=== PATIENT | female | born 1960 | race African-American/Black ===

== ENCOUNTER → 2016-08-27 | Outpatient (CLI) | payer OTHER ==
--- NOTE | 2016-08-27 10:34 | KCIC ---
PROCEDURE Two-view chest HISTORY Clubbing of fingernails and toenails a few months ago. COMPARISON None FINDINGS The cardiac silhouette is not grossly enlarged. No vascular congestion. No pneumothorax. No focal airspace consolidation. No pleural effusion. No pneumothorax. Mild left convexity thoracic spinal curvature with mild hyper expansion of the left darrin thorax. IMPRESSION No evidence of active disease in the chest. Electronically signed by: Hasmukh Ortega MD (Aug 27, 2016 10:32:41)
== END | disposition home or self-care (01) ==
LOC: KCIC 09:49
PROVIDERS: ATTEND Family Medicine
DX: R68.3 Clubbing of fingers (principal)
CPT/HCPCS: 71020

== ENCOUNTER → 2017-01-26 | Outpatient (CLI) | payer OTHER ==
--- NOTE | 2017-01-26 16:21 | RAD ---
DATE: 01/26/17 EXAM: DIGITAL SCREEN BILAT W/CAD HISTORY: Routine screening COMPARISON: None available. This is a baseline exam This study was interpreted with the benefit of Computerized Aided Detection (CAD). TECHNIQUE: Routine digital CC and MLO views of both breasts are obtained. FINDINGS: Breast Density: SCATTERED The breast parenchyma shows scattered fibroglandular densities. Breast parenchyma level B. . There is a area of nodular asymmetric density in the outer retroareolar region. This is probably seen at the area of asymmetric density on the MLO projection. There is also an area of asymmetric density in the outer right breast zone C. No suspicious clustered microcalcifications are seen. Benign-appearing calcifications are present in the left upper outer breast. IMPRESSION: Area of asymmetric nodular density in the left outer breast, zone A. This may be evaluated with 90 degree mediolateral and CC spot compression view and ultrasound. Area of apparent asymmetric density in the deep outer left breast may also be evaluated by exaggerated CC view and ultrasound. BI-RADS CATEGORY: 0 INCOMPLETE: NEED ADDITIONAL IMAGING EVALUATION AND/OR PRIOR MAMMOGRAMS FOR COMPARISON. RECOMMENDED FOLLOW-UP: ADD ADDITIONAL IMAGING PQRS compliance statement: Patient information was entered into a reminder system with a target due date for the next mammogram. Mammography is a sensitive method for finding small breast cancers, but it does not detect them all and is not a substitute for careful clinical examination. A negative mammogram does not negate a clinically suspicious finding and should not result in delay in biopsying a clinically suspicious abnormality. "Our facility is accredited by the [employer] Mammography Program."
== END | disposition home or self-care (01) ==
LOC: MAMMO 14:42
PROVIDERS: ATTEND Family Medicine
DX: Z12.31 Encounter for screening mammogram for malignant neoplasm of breast (principal)
CPT/HCPCS: G0202; 77067

== ENCOUNTER → 2017-02-04 | Outpatient (CLI) | payer OTHER ==
--- NOTE | 2017-02-04 14:20 | RAD ---
DATE: 02/04/2017 EXAM: DIGITAL DIAGNOSTIC LT, BREAST LEFT HISTORY: Suspicious screening study COMPARISON: 01/26/2017 This study was interpreted with the benefit of Computerized Aided Detection (CAD). The breast parenchyma shows scattered fibroglandular densities. Breast parenchyma level B. FINDINGS: Rolled and spot compression views confirm the presence of a small retroareolar density on the left, projected just lateral and superior to the midline. A slightly less prominent density is present at the same level on the right. The pattern suggests that this may represent a confluence of ducts. There is a hazy opacity located posteriorly in the upper outer quadrant of the left breast in the craniocaudad projection. This is inconsistently demonstrated on the rolled views. No discrete mass is seen on the oblique or straight mediolateral views. This probably represents superimposed fibroglandular shadows. Left breast ultrasound, 02/04/2017: A targeted ultrasound exam of the retroareolar region of the left breast was performed. Mildly prominent ducts are seen in this region, more so laterally. This appears to correspond to the area of increased density seen on the mammograms. No discrete mass is identified. We also scanned the entire upper outer quadrant of the left breast. Heterogeneous fibroglandular shadows are present. No cystic or solid breast mass is seen. IMPRESSION: Probably benign findings as described above. In the absence of old mammograms to establish stability, mammographic surveillance beginning with left mammography in 6 months and bilateral mammograms at one year is suggested. BI-RADS CATEGORY: 3 PROBABLY BENIGN FINDING(S)-SHORT INTERVAL FOLLOW-UP SUGGESTED RECOMMENDED FOLLOW-UP: 6M 6 MONTH FOLLOW-UP Note: The findings were discussed with the patient at the time of the exam. PQRS compliance statement: Patient information was entered into a reminder system with a target due date for the next mammogram. Mammography is a sensitive method for finding small breast cancers, but it does not detect them all and is not a substitute for careful clinical examination. A negative mammogram does not negate a clinically suspicious finding and should not result in delay in biopsying a clinically suspicious abnormality. "Our facility is accredited by the [employer] Mammography Program."
== END | disposition home or self-care (01) ==
LOC: MAMMO 13:06
PROVIDERS: ATTEND Family Medicine
DX: R92.8 Other abnormal and inconclusive findings on diagnostic imaging of breast (principal)
CPT/HCPCS: 76641; G0206; 77065

== ENCOUNTER → 2017-08-12 | Outpatient (CLI) | payer OTHER | END | disposition home or self-care (01) | LOC: MAMMO 09:53 | DX: Z09 Encounter for follow-up examination after completed treatment for conditions other than malignant neoplasm (principal); R92.8 Other abnormal and inconclusive findings on diagnostic imaging of breast | CPT/HCPCS: 77065 ==

== ENCOUNTER → 2019-02-12 | Outpatient (CLI) | payer OTHER ==
--- NOTE | 2019-02-12 12:25 | RAD ---
MRI of the lumbar spine without contrast 02/12/2019 CLINICAL HISTORY: Low back pain which radiates down the right leg for one month. TECHNIQUE: Unenhanced T1-weighted and T2-weighted sagittal and axial images of the lumbar spine were obtained. FINDINGS: The patient appears to have transitional vertebral anatomy. For the purposes of this dictation the transitional vertebrae will be referred to by the letter T. It is partially sacralized. A hypoplastic disc is seen at T-S1. Very mild S-shaped curvature of the thoracolumbar spine is seen. Degenerative signal changes are seen involving all of the disks of the lumbar spine. Degenerative signal changes are seen within the marrow surrounding these discs. Loss of height of the L3-4, L4-5 and L5-T disks is noted. The conus medullaris is within normal limits in morphology, position, and signal characteristics. The L1-2 disc space is within normal limits. At the L2-3 disc space there is a mild generalized disc bulge. Degenerative changes are seen involving the facet joints bilaterally. There is moderate ligamentum flavum hypertrophy bilaterally. There is prominence of the posterior epidural fat. These findings when combined do not result in significant central spinal canal or neural foraminal stenosis. At the L3-4 disc space there is a mild to moderate generalized disc bulge. Degenerative changes are seen involving the facet joints bilaterally. There is moderate ligamentum flavum hypertrophy bilaterally. These findings when combined result in mild central spinal canal stenosis. No neural foraminal stenosis is seen. At the L4-5 disc space there is a mild to moderate generalized disc bulge. This is eccentric to the left. Degenerative changes are seen involving the facet joints bilaterally. There is moderate ligamentum flavum hypertrophy bilaterally. There is prominence of posterior epidural fat. Superimposed on the disc bulge is a left paracentral focal disc herniation which extrudes superiorly. This measures 4 mm in AP diameter. These findings when combined result in mild left greater than right central spinal canal stenosis. Mild to moderate left greater than right neural foraminal stenosis is seen. At the L5-T disc space there is a moderate generalized disc bulge. Degenerative changes are seen involving the facet joints bilaterally. There is moderate ligamentum flavum hypertrophy bilaterally. These findings when combined result in mild central spinal canal stenosis. Mild to moderate bilateral neural foraminal stenosis is seen. The T-S1 disc space is within normal limits. IMPRESSION: The changes of degenerative disc disease are seen throughout the lumbar spine. These findings result in mild central spinal canal stenosis at L3-4 and L5-T, and mild left greater than right central spinal canal stenosis at L4-5. Mild to moderate left greater than right neural foraminal stenosis is seen at L4-5. Mild to moderate bilateral neural foraminal stenosis is seen at L5-T. Electronically signed by: Issa Bhatia MD (02/12/2019 12:22 PM) [email or web address]
== END | disposition home or self-care (01) ==
LOC: MRI 15:02
PROVIDERS: ATTEND Family Medicine
DX: M48.05 Spinal stenosis, thoracolumbar region (principal); M51.16 Intervertebral disc disorders with radiculopathy, lumbar region; M47.26 Other spondylosis with radiculopathy, lumbar region; M47.814 Spondylosis without myelopathy or radiculopathy, thoracic region; M89.38 Hypertrophy of bone, other site; R26.9 Unspecified abnormalities of gait and mobility
CPT/HCPCS: 72148

== ENCOUNTER → 2019-03-28 | Outpatient (CLI) | payer OTHER ==
--- NOTE | 2019-03-28 16:09 | RAD ---
MRI Thoracic Spine without contrast History: Thoracic radiculopathy Technique: Multiplanar, multi sequential noncontrast MR imaging was performed of the thoracic spine. Comparison: None Findings: There is some motion degradation. Thoracic vertebral body stature and AP alignment are adequate. Thoracic cord caliber is within normal limits without defined or expansile signal abnormality, limited evaluation for more subtle signal change due to motion degradation. There is no significant focal marrow edema of the thoracic spine. There is multilevel spondylosis of mid to inferior thoracic levels. There is mild disc desiccation of mid to inferior thoracic levels, intervertebral disc spaces relatively preserved. Facet degenerative change contributes to [id number] posterior narrowing of the right T11-T12 neural foramen, minimal narrowing such as on the left at T11-12 and on the right at T8-T9 and T8-9 and T10. There is no focal posterior disc abnormality of the thoracic spine. There is no significant thoracic spinal stenosis at any level. Impression: 1. There is no significant thoracic spinal stenosis. Facet degenerative change contributes to degree of neural foramina compromise greatest on the right at T11-12. Electronically signed by: Piero Soriano MD (03/28/2019 4:06 PM) [id number]
--- NOTE | 2019-03-28 17:15 | RAD ---
MRI Cervical Spine Without Contrast History: Cervical stenosis Technique: Multiplanar, multi sequential noncontrast MR imaging was performed of the cervical spine. Comparison: None Findings: Not fully evaluated, there is ventriculomegaly. There is some motion degradation. There is appearance of some increased T2 signal of the cord such as on sagittal T2 sequence at C2, C3, C4-5. Cervical vertebral body stature is maintained. There is straightening of cervical spine. There is mild reversal of the lordotic curvature centered near C5-6. There is grade 1 anterior spondylolisthesis C3-4, C4-5, C5-6, C6-7. There is mild degenerative disc disease C6-7, mild disc desiccation C5-6. There is mild amorphous endplate edema greatest at C6-7 and to lesser degree at C5-6, also the anterior inferior aspect of C3-4 likely be due to be reactive/degenerative in etiology. C2-C3: Neural foramina and spinal canal are adequate. C3-C4: Spinal canal and neural foramina are adequate. C4-C5: Spinal canal and neural foramina are adequate C5-C6: Spinal canal and neural foramina are adequate. There is facet degenerative change. C6-C7: Neural foramina and spinal canal are adequate. C7-T1: Neural foramina and spinal canal are adequate. Impression: 1. There is no significant cervical spinal stenosis. There is multilevel mild abnormal alignment. Poorly evaluated due to motion artifact, there is appearance of mild increased patchy T2 signal of the cord, could be due to inflammatory demyelinating disease in the appropriate clinical setting although again limited characterization due to motion. 2. Not fully evaluated, there is ventriculomegaly. 3. There is mild degenerative disc disease, mild endplate edema likely reactive/degenerative in etiology. Electronically signed by: Piero Soriano MD (03/28/2019 5:12 PM) [email or web address]
== END | disposition home or self-care (01) ==
LOC: MRI 08:56 → EEVIPCON 08:56
PROVIDERS: ATTEND Neurological Surgery
DX: M50.322 Other cervical disc degeneration at C5-C6 level (principal); M47.24 Other spondylosis with radiculopathy, thoracic region; M47.812 Spondylosis without myelopathy or radiculopathy, cervical region; M48.04 Spinal stenosis, thoracic region; M43.12 Spondylolisthesis, cervical region
CPT/HCPCS: 72141; 72146

== ENCOUNTER → 2019-04-04 | Outpatient (CLI) | payer OTHER ==
[~2019-04-04] MED LIST: GADOTERATE 7.5 MMOL/15ML VIAL. IVP ONE
--- NOTE | 2019-04-04 12:38 | RAD ---
MRI of the Brain without and with Contrast 04/04/2019 Clinical History: Ventriculomegaly seen on recent MRI of the cervical spine. Dizziness. Technique: Unenhanced T1-weighted sagittal and axial and FLAIR, T2-weighted, gradient echo and diffusion-weighted axial images of the brain were obtained. After the intravenous administration of 16 cc of DOTAREM, enhanced T1-weighted axial, sagittal and coronal images of the brain were obtained. Findings: Comparison is made to the patient's MRI of the cervical spine dated 03/01/2019. 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 Prominent CSF is seen anterior to both temporal lobes and the inferior aspect of the posterior fossa. There is no definite MRI evidence of transependymal CSF flow. There is generalized parenchymal atrophy. Patchy and several small scattered areas of increased signal intensity are seen within the periventricular and subcortical white matter of both cerebral hemispheres on the FLAIR and T2-weighted images consistent with areas of relatively mild small vessel ischemic disease. No acute parenchymal abnormality is seen. No area of abnormal contrast enhancement is seen. There is no MRI evidence of acute ischemia/infarction. Mild mucosal thickening is seen scattered throughout the paranasal sinuses. Normal flow voids are seen within the major vascular structures surrounding the brain parenchyma. Impression: 1. 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 2. No acute parenchymal abnormality is seen. Electronically signed by: Issa Bhatia MD (04/04/2019 12:35 PM) [email or web address]
== END | disposition home or self-care (01) ==
LOC: MRI 08:41
PROVIDERS: ATTEND Neurological Surgery
DX: G93.89 Other specified disorders of brain (principal); G31.9 Degenerative disease of nervous system, unspecified; G91.0 Communicating hydrocephalus; R90.82 White matter disease, unspecified
CPT/HCPCS: 70553; A9575

== ENCOUNTER → 2020-04-30 | Outpatient (CLI) | payer MEDICAID ==
--- NOTE | 2020-04-30 13:51 | RAD ---
DATE: 04/30/2020 12:58 PM EXAM: DIGITAL DIAGNOSTIC BILATERAL HISTORY: Patient is due for screening and presents for short-term follow-up probably benign left breast finding on prior left diagnostic mammogram. COMPARISON: Bilateral mammograms of 01/26/2017, left digital diagnostic mammogram of 08/12/2017. Limited left breast ultrasound of 02/04/2017. TECHNIQUE: Bilateral full field craniocaudal and mediolateral oblique images were obtained using digital technique. This study was interpreted with the benefit of Computerized Aided Detection (CAD). FINDINGS: Breast Density: SCATTERED The breast parenchyma shows scattered fibroglandular densities. Breast parenchyma level B Previously questioned hazy opacity in the posterior upper-outer quadrant left breast is less conspicuous in the interval and likely reflects an involuting island of fibroglandular tissue. Partially imaged shunt catheter tubing in the medial right breast is incidentally noted. No suspicious masses, microcalcifications or architectural distortion is present to suggest malignancy in either breast. The visualized axillae are unremarkable. IMPRESSION: No mammographic evidence of malignancy. BI-RADS CATEGORY: 1 NEGATIVE RECOMMENDED FOLLOW-UP: 12M 12 MONTH FOLLOW-UP Annual screening mammography is recommended, unless clinically indicated sooner based on symptoms or change in physical exam. PQRS compliance statement: Patient information was entered into a reminder system with a target due date for the next mammogram. Mammography is a sensitive method for finding small breast cancers, but it does not detect them all and is not a substitute for careful clinical examination. A negative mammogram does not negate a clinically suspicious finding and should not result in delay in biopsying a clinically suspicious abnormality. "Our facility is accredited by the [employer] Mammography Program."
== END ==
LOC: MAMMO 12:47
PROVIDERS: ATTEND Family Medicine
DX: R92.2 Inconclusive mammogram (principal)
CPT/HCPCS: 77066

== ENCOUNTER → 2020-11-04 | Outpatient (CLI) | payer MEDICAID ==
--- NOTE | 2020-11-04 12:14 | KCIC ---
EXAM: Lumbar spine, 5 views. HISTORY: Pain. COMPARISON: None. FINDINGS: 5 views lumbar spine are obtained. There is mild thoracolumbar scoliosis. There is a transi tional lumbosacral segment, considered a partial lumbarized S1 segment for this dictation. Based on t his numbering system, there is a chronic mild right wedge compression deformity of L1. There is also a chronic mild decreased vertebral body height at the lower thoracic levels. There is multilevel endp late remodeling with osteophytosis. There is disc space narrowing and vacuum phenomenon at L5-S1. The re is facet arthropathy predominantly at the lower lumbar levels. There is a ventriculoperitoneal anselmo nt terminating over the pelvis. IMPRESSION: 1. Multilevel degenerative change throughout the lower thoracic and lumbar spine, described above. 2. Chronic mild compression deformity of L1 and chronic mild decreased vertebral body height at multi ple thoracic levels. Electronically signed by: Cinthya Reis MD (11/04/2020 12:12 PM) [id number]
== END ==
LOC: KCIC 11:00
PROVIDERS: ATTEND Family Medicine
DX: M47.895 Other spondylosis, thoracolumbar region (principal); M43.8X5 Other specified deforming dorsopathies, thoracolumbar region
CPT/HCPCS: 72110

== ENCOUNTER → 2021-05-04 | Outpatient (CLI) | payer MEDICAID ==
--- NOTE | 2021-05-04 11:13 | RAD ---
Bilateral digital screening mammogram: Reason for examination: Routine screening. Comparison: Mammograms from 04/30/2020, 01/26/2017, 02/04/2017 Interpretation was made with the benefit of CAD. FINDINGS: Breast density: Category B. There are scattered areas of fibroglandular density. No suspicious breast mass, malignant appearing calcifications, or architectural distortion is seen. T here is a very faint 3 mm group of calcifications in the left inner breast, 9:00 position at 8 cm fro m the nipple. These appear to be present on the 2017 exams and have not changed significantly. IMPRESSION: No evidence of malignancy. Assessment: BI-RADS 2. Benign finding. Recommendation: Routine screening mammograms. The patient will receive a letter with the results in the mail. Patient information will be entered i nto the mammography reminder system with a target recall date for the next mammogram. A reminder leeroy er will be generated. Electronically signed by: Radha Campos MD (05/04/2021 11:10 AM) [id number]
== END ==
LOC: MAMMO 09:48
PROVIDERS: ATTEND Family Medicine
DX: Z12.31 Encounter for screening mammogram for malignant neoplasm of breast (principal)
CPT/HCPCS: 77067

== ENCOUNTER → 2021-10-12 | Outpatient (CLI) | payer MEDICAID, MEDICARE ==
--- NOTE | 2021-10-13 07:47 | KCIC ---
EXAMINATION: CT HEAD/BRAIN WO CLINICAL HISTORY: Dizziness, cerebral ventriculomegaly, non-intractable episodic headache. History of frequent falls, past bleed, shunt. TECHNIQUE: Serial axial images without IV contrast were obtained from the vertex to the foramen magnu m. CT Dose Reduction Employed: One or more of the following individualized dose reduction techniques wer e utilized for this examination: 1. Automated exposure control 2. Adjustment of the mA and/or kV ac cording to patient size 3. Use of iterative reconstruction technique. COMPARISON: MRI brain 04/04/2019 FINDINGS: Acute Change: No evidence of an acute infarct or other acute parenchymal process. Hemorrhage: No evidence of acute intracranial hemorrhage. Mass Lesion/Mass Effect: No evidence of intracranial mass or extraaxial fluid collection. No signific ant mass effect. Chronic Change: Atherosclerotic calcification of the intracranial portion of the bilateral internal c arotid arteries. Parenchyma: Generalized parenchymal volume loss, similar to prior study. Ventricles: Right frontal approach ventriculostomy catheter terminating in the frontal horn/anterior body of the right lateral ventricle. Markedly enlarged lateral, third, and fourth ventricles, similar to prior study and compatible with communicating hydrocephalus. Prominent CSF noted anterior to the bilateral temporal lobes and in the inferior aspect of the posterior fossa, asymmetric to the left, s imilar to prior study. Paranasal Sinuses and Skull Base: Visualized paranasal sinuses clear. Visualized skull base and soft tissues unremarkable. IMPRESSION: No evidence of acute intracranial abnormality. Interval placement of ventriculostomy catheter with marked communicating hydrocephalus, similar to pr ior study. Electronically signed by: Ken Vasquez DO (10/12/2021 12:54 PM) [facility]
== END ==
LOC: KCIC CT 09:45
PROVIDERS: ATTEND Family Medicine
DX: I65.23 Occlusion and stenosis of bilateral carotid arteries (principal); G93.89 Other specified disorders of brain; R42 Dizziness and giddiness; Z98.2 Presence of cerebrospinal fluid drainage device
CPT/HCPCS: 70450